=== PATIENT | female | born 2000 | race Caucasian/White ===

== ENCOUNTER 2023-05-15 18:29 | Emergency (ER) | payer SELFPAY ==
--- NOTE | 2023-05-15 18:41 | ED.URI ---
HPI - URI/Sore Throat General Chief Complaint: Ear Stated Complaint: ear discomfort,fever Time Seen by Provider: 05/15/23 18:54 Source: patient Mode of arrival: ambulatory Limitations: no limitations History of Present Illness HPI Narrative: Becka is a 23-year-old female patient presenting to the clinic today with complaints of fever, headache, ear pain, sore throat, swollen lymph nodes, and chills. She reports symptoms have been going on for 3 days. States she has had fever however she does not know how high the fever has been but if she was to get she was a 100-101. MD elicited complaint: fever, cough, sore throat, rhinorrhea, nasal congestion and other (Occipital lymphadenopathy) Related Data Home Medications Medication Instructions Recorded Confirmed No Home Medications 05/15/23 05/15/23 Allergies Allergy/AdvReac Type Severity Reaction Status Date / Time No Known Allergies Allergy Verified 05/15/23 18:49 Review of Systems Review of Systems: Pertinent positives per HPI. Patient denies any rash, visual changes, dizziness, cough, shortness of breath, chest pain, palpitations, nausea, vomiting, diarrhea, constipation, abdominal pain, or any urinary issues. [facility] Comments At the time of my signature, I reviewed and agree with the nursing past medical, surgical, social, and family history. There is no relevant family history pertinent to the patient complaint. Exam Narrative: General: Well-developed, obese, in no apparent distress Head: Normocephalic, atraumatic, swollen occipital lymph nodes Eyes: Pupils equally round and reactive to light bilaterally, EOM intact, sclera and conjunctive clear, no discharge, lids normal Ears: TMs intact and clear, ear canals clear, no drainage, grossly hearing normal. Nose: Nares patent, no discharge, no inflammation, no sinus tenderness. Mouth: Oral pharynx without lesions or masses, good dentition, MMM. Neck: Supple, trachea midline, no enlargement of anterior or posterior cervical nodes, no thyroid masses or goiter palpable. Cardio: Regular rate and rhythm, s1 and s2 normal, no murmur appreciated. Resp: Clear to auscultation bilaterally, no rhonchi, rales, wheezing or rubs Course Course Emergency Course: Portions of this record may have been created with voice recognition software. Level of Care: Express Care Visit Vital Signs Vital signs: Vital signs reviewed MDM - URI/Sore Throat MDM Narrative Medical decision making narrative: At the time of visit patient is resting comfortably on the exam table. Patient appears to be nontoxic. Plan: I offered to test patient for mono, COVID, influenza, and strep and she declined. States that she does not feel as she has any of those illnesses. She is concerned about possible mastoiditis. She reports some tenderness behind her ears and swelling of the lymph nodes. Offer to send the patient to the ER for further evaluation and she declines. Explained to the patient that I am unable to do blood work or any CT scans to rule out mastoiditis in the clinic and she voiced understanding. Vital signs are stable in the clinic today with a temperature of 36.7?, heart rates 97, blood pressure is 119/81. No obvious sign of a bacterial infection upon evaluation. Recommend patient go to the emergency room if her symptoms worsen and she voiced understanding. Supportive measures were discussed with the patient and they voiced understanding discharge instructions and agrees to treatment plan. Return precautions reviewed Differential Diagnosis Differential diagnosis: Likely upper respiratory infection, otitis media, sinusitis, viral infection, bronchitis, influenza, pharyngitis and other (COVID) Discharge Plan Discharge Clinical Impression: Acute viral syndrome, Swelling of lymph node Patient Disposition: Home, Self-Care Condition: Stable Instructions: Antibiotic Form, Lymphadenopathy (ED), Viral Syndrome (ED) Add
[2023-05-15 18:48] VITALS: BP 119/81; PULSE 97; RESP 18; TEMP 36.7; O2SAT 99
[2023-05-15 18:50] VITALS: BP 119/81; PULSE 97; RESP 18; TEMP 36.7; O2SAT 99
== END 2023-05-15 19:13 | disposition home or self-care (01) ==
PROVIDERS: Emergency Provider Nurse Practitioner Family
DX: B34.9 Viral infection, unspecified (principal); R59.9 Enlarged lymph nodes, unspecified; I48.91 Unspecified atrial fibrillation
CPT/HCPCS: 99211; G0463